=== PATIENT | female | born 1975 | race Caucasian/White ===

== ENCOUNTER 2016-09-28 08:47 | Emergency (ER) | payer OTHER ==
[~2016-09-28] VITALS: Ht 154.9 cm; Wt 72.4 kg
[~2016-09-28 08:47] MED LIST: ASPI-785 PO; METF500T4 PO
[2016-09-28 09:55] VITALS: BP 131/74
[2016-09-28] MEDS ORDERED: IBUPROFEN 600MG TABLET PO ONE (10:00)
[2016-10-31] MEDS ORDERED: CEPH500C2 PO (15:47)
[2016-10-31] MEDS ORDERED: GLIP10TA10 PO (15:47)
[2016-10-31] MEDS ORDERED: METF10002 PO (15:47)
[2016-10-31] MEDS ORDERED: ASPI-1035 PO (15:47)
[2016-10-31] MEDS ORDERED: LISI2.5T47 PO (15:47)
[2016-10-31] MEDS ORDERED: HUMULIN SUBCUT (15:47)
== END 2016-09-28 11:58 | disposition home or self-care (01) ==
LOC: ER 09:31
DX: S80.211A Abrasion, right knee, initial encounter (principal); S80.01XA Contusion of right knee, initial encounter; E11.65 Type 2 diabetes mellitus with hyperglycemia; Z79.82 Long term (current) use of aspirin; W01.0XXA Fall on same level from slipping, tripping and stumbling without subsequent striking against object, initial encounter; Y93.89 Activity, other specified; Y92.89 Other specified places as the place of occurrence of the external cause; Y99.8 Other external cause status
CPT/HCPCS: 73562; 73590; 82962; 99284

== ENCOUNTER 2017-03-31 05:43 | Emergency (ER) | payer OTHER ==
[~2017-03-31] VITALS: Ht 154.9 cm; Wt 73.0 kg
[~2017-03-31 05:43] MED LIST changes: +ASPI-1159 PO; -ASPI-785 PO; +CEPH500C2 PO; +GLIP10TA10 PO; +HUMULIN SUBCUT; +LISI2.5T47 PO; +METF10002 PO; -METF500T4 PO
[2017-03-31] MEDS ORDERED: SODIUM CHLORIDE 0.9% 1,000 ML IV ONE (06:29)
[2017-03-31] MEDS ORDERED: KETOROLAC 30MG/ML VIAL IV STA (06:29)
[2017-03-31 06:56] LABS: CLARITY URINE CLEAR (CLEAR); COLOR URINE YELLOW (YELLOW); GLUCOSE URINE 3+ (NEGATIVE); KETONES URINE 1+ (NEGATIVE); LEUKOCYTE ESTERASE URINE TRACE (NEGATIVE); NITRITE URINE NEGATIVE (NEGATIVE); OCCULT BLOOD URINE NEGATIVE (NEGATIVE); PH URINE 5.5 (4.5-8.0); PROTEIN URINE NEGATIVE (NEGATIVE); SPECIFIC GRAVITY URINE 1.023 (1.005-1.030); UROBILINOGEN URINE 0.2 E.U./dL (0.2-1.0)
[2017-03-31 07:00] LABS: CHLORIDE 100 mEq/L (98-107)
[2017-03-31 07:05] LABS: CARBON DIOXIDE 27 mEq/L (21-32)
[2017-03-31 07:08] LABS: BASOPHILS % 0.7 % (0.0-2.0); EOSINOPHILS % 1.3 % (0.0-5.0); HEMATOCRIT. 39.8 % (36.0-48.0); HEMOGLOBIN. 13.5 g/dL (12.0-16.0); LYMPHOCYTES % 39.2 % (20.0-50.0); MEAN CORPUSCULAR HEMOGLOBIN 30.6 pg (28.0-32.0); MEAN CORPUSCULAR VOLUME 90.2 fL (81.0-99.0); MEAN PLATELET VOLUME 8.7 fl (7.4-10.4); MONOCYTES % 6.9 % (2.0-8.0); NEUTROPHILS % 51.9 % (40.0-76.0); PLATELET 239 x1000/uL (130-400); RED BLOOD CELL COUNT 4.42 mill/uL (4.2-5.4); RED CELL DISTRIBUTION WIDTH 12.1 % (11.6-14.6)
[2017-03-31] MEDS ORDERED: ONDANSETRON HCL 4MG/2ML VIAL IV ONE (11:15)
[2017-03-31] MEDS ORDERED: MORPHINE SULFATE 4 MG/ML CPJ (NOT FOR IM USE) IV ONE (11:15)
[2017-03-31 12:40] VITALS: BP 117/72
== END 2017-03-31 12:42 | disposition home or self-care (01) ==
LOC: ER 07:20
DX: D24.1 Benign neoplasm of right breast (principal); I10 Essential (primary) hypertension; E11.9 Type 2 diabetes mellitus without complications; F17.200 Nicotine dependence, unspecified, uncomplicated; Z79.82 Long term (current) use of aspirin
CPT/HCPCS: 36415; 71010; 76641; 80048; 81001; 85025; 93005; 96361; 96374; 96375; 99285; J1885; J2270; J2405; J7030; Z7610

== ENCOUNTER 2019-03-28 00:35 | Emergency (ER) | payer OTHER ==
[~2019-03-28] VITALS: Ht 165.1 cm; Wt 73.0 kg
[~2019-03-28 00:35] MED LIST changes: -ASPI-1159 PO; +ASPI-1393 PO; +METF-416 PO; -METF10002 PO
[2019-03-28] MEDS ORDERED: SODIUM CHLORIDE 0.9% 1,000 ML IV ONE (01:45)
[2019-03-28] MEDS ORDERED: KETOROLAC 30MG/ML VIAL IV ONE (01:45)
[2019-03-28] MEDS ORDERED: CLINDAMYCIN 600 MG in DEXTROSE 5% WATER 50 ML IV ONE (01:45)
[2019-03-28 02:23] LABS: CHLORIDE 103 mEq/L (98-107)
[2019-03-28 02:53] LABS: CLARITY URINE CLEAR (CLEAR); COLOR URINE YELLOW (YELLOW); KETONES URINE TRACE (NEGATIVE); LEUKOCYTE ESTERASE URINE NEGATIVE (NEGATIVE); NITRITE URINE NEGATIVE (NEGATIVE); OCCULT BLOOD URINE NEGATIVE (NEGATIVE); PROTEIN URINE NEGATIVE (NEGATIVE); SPECIFIC GRAVITY URINE 1.051 (1.005-1.030)
[2019-03-28] MEDS ORDERED: CLINDAMYCIN 600MG PREMIX 50 ML IV SCH (03:00)
[2019-03-28 03:50] LABS: HEMATOCRIT 35.5 % (36.0-48.0); HEMOGLOBIN 12.2 g/dL (12.0-16.0); MEAN CORPUSCULAR HEMOGLOBIN 31.4 pg (28.0-32.0); MEAN CORPUSCULAR VOLUME 91.3 fL (81.0-99.0); PLATELET 197 x1000/uL (130-400); RED BLOOD CELL COUNT 3.89 mill/uL (4.2-5.4); RED CELL DISTRIBUTION WIDTH 13.2 % (11.6-14.6)
[2019-03-28] MEDS ORDERED: HYDROCODONE/ACETAMINOPHEN 10/325MG TABLET PO ONE (04:15)
[2019-03-28 04:36] VITALS: BP 114/66
== END 2019-03-28 04:39 | disposition home or self-care (01) ==
LOC: ER 00:35
DX: G89.29 Other chronic pain (principal); H92.02 Otalgia, left ear; E11.9 Type 2 diabetes mellitus without complications; I10 Essential (primary) hypertension; K21.9 Gastro-esophageal reflux disease without esophagitis; Z98.890 Other specified postprocedural states; Z79.84 Long term (current) use of oral hypoglycemic drugs; Z87.820 Personal history of traumatic brain injury; Z79.82 Long term (current) use of aspirin; Z87.19 Personal history of other diseases of the digestive system
CPT/HCPCS: 36415; 70460; 80053; 81003; 83605; 85027; 87040; 96374; 96375; 99284; J1885; J3490; J7030; Q9967; J7060